=== PATIENT | female | born 1980 | race Caucasian/White ===

== ENCOUNTER 2018-08-12 06:41 | Day surgery (SDC) | payer MEDICARE, MEDICAID, SELFPAY ==
[2018-08-12] VITALS (7 sets, daily range): BP systolic 99–127; BP diastolic 66–84; PULSE 56–75; RESP 14–16; TEMP 36.2–36.6; O2SAT 98–100; BMI 31.0
[2018-08-12] MEDS: Oxymetazoline 0.05% 1 SPRAY SPRAY.BTL 15 SPRAY (09:15)
--- NOTE | 2018-08-12 09:23 | PCM.OPRPT ---
Problem List (1) Chronic serous otitis media of both ears Status: Chronic (2) Disorder of both eustachian tubes Status: Chronic (3) Trisomy 21 Status: Chronic (4) Mixed hearing loss, bilateral Status: Chronic Report of Operation Date of Procedure: 08/12/18 Pre-Operative Diagnosis: Chronic serous effusion with mixed hearing loss Post-Operative Diagnosis: same Surgery/Procedure Performed:: Bilateral myringotomy tube placement Description of Surgical Findings:: Lavonne is a 38-year-old female with Down syndrome who presents with a mixed hearing loss due to chronic middle ear effusions. She gives a long history of attempted tympanostomy tube placement in the past approximately 20 episodes which did not result in long time retention of the tubes. Placement of T tubes in the hopes of resolution of the effusions and her mixed hearing loss for longer term ventilation and middle ear cleft was advised and that family was agreeable to proceed. The risks, alternatives, potential complications, and benefits were discussed at length and any questions answered to the patient and/or caregiver's satisfaction. Witnessed informed consent was obtained in the office, and the patient and/or caregiver was agreeable to proceed. Procedure went as follows: The patient was identified in the preoperative holding and brought to the operating room, and placed under general anesthesia. When appropriate anesthesia was obtained, the operative microscope was brought into the field and beginning on the right side the external auditory canal and tympanic membrane visualized. This is noted to be deeply retracted with mucoid effusion. A myringotomy was then placed in the anteroinferior portion the tympanic membrane and Jeffrey T-tube tympanostomy tube placed followed by oxymetazoline drops. Similar procedure findings a completed on the contralateral side. The patient was then returned to anesthesia, revived and returned to recovery without complication. Type of Anesthesia:: General, MAC Anesthesiologist: Manish Wahl Special Medications: none Specimen's removed: none Drains: none Estimated Blood Loss (mL): 0 mL Fluids Replaced: 400 mL Grafts/Implants Used: T-tubes - Complications none - Admit VTE Documentation VTE Present on Admission: No VTE Mechan Device Prophylaxis: SCD's VTE Pharm Prophylaxis ordered?: No
--- NOTE | 2018-08-12 09:29 | DCINST_ITS ---
Discharge Diet: No Restrictions Discharge Activity: Return to Normal Activity Call your doctor if your incision/area has: Continuous Slow Oozing Call your doctor if you observe: Fever of 101 or Higher, Uncontrolled pain Allergies/Adverse Reactions: Allergies No Known Allergies Allergy (Verified 08/09/18 15:58) Medications to take at Discharge NK 08/09/18 Primary Care Physician: Linnette Pizarro [Primary Care Provider] - Test Results: Test results from this visit will be discussed in further detail at your follow- up appointment, if applicable. Please Follow Up With: Miguel Carlos MD When: 2 weeks
== END 2018-08-12 11:38 | disposition home or self-care (01) ==
LOC: SDC 06:43 → AC 06:45
PROVIDERS: Family Provider Internal Medicine; PCP Internal Medicine; Referring Provider Otolaryngology; Visit Provider Otolaryngology
PROC: (CPT 69436; principal; 2018-08-12 08:40)
DX: H65.23 Chronic serous otitis media, bilateral (principal); H90.6 Mixed conductive and sensorineural hearing loss, bilateral; H69.93 Unspecified Eustachian tube disorder, bilateral; Q90.9 Down syndrome, unspecified; Q43.1 Hirschsprung's disease
CPT/HCPCS: 69436; J7120; J2405